=== PATIENT | female | born 1970 | race Hispanic/Latino ===

== ENCOUNTER 2018-05-21 07:10 | Day surgery (SDC) | payer OTHER ==
[2018-05-21 08:02] VITALS: BP 102/69; PULSE 83; RESP 20; TEMP 97.8; O2SAT 98
[2018-05-21 08:02] LABS: EOS % 1.7 % (0.0-4.0); HEMOGLOBIN 10.7 g/dL (11.0-16.0); LYMPH # 1.3 K/uL (1.0-4.3); LYMPH % 45.9 % (20.0-40.0); MEAN CORPUSCULAR HGB CONC 31.9 g/dL (33.0-37.0); MEAN PLATELET VOLUME 11.4 fL (7.2-11.7); MONO # 0.3 K/uL (0.0-0.8); MONO % 10.8 % (0.0-10.0); NEUT # 1.2 K/uL (1.8-7.0); NEUT % 40.6 % (50.0-75.0); NRBC % 0.2 % (0.0-2.0); RBC 5.1 Mil/uL (3.80-5.20); RED CELL DISTRIBUTION WIDTH 14.6 % (11.5-14.5); WHITE BLOOD COUNT 2.8 K/uL (4.8-10.8)
== END 2018-05-21 09:15 | disposition home or self-care (01) ==
LOC: C.SDS 07:10
PROVIDERS: ATTEND Podiatrist Foot & Ankle Surgery
DX: M20.12 Hallux valgus (acquired), left foot (principal); Z53.9 Procedure and treatment not carried out, unspecified reason

== ENCOUNTER 2018-08-29 08:18 | Day surgery (SDC) | payer MEDICAID | END 2018-08-29 15:30 | disposition home or self-care (01) | LOC: C.SDS 08:18 | DX: M20.12 Hallux valgus (acquired), left foot (principal) ==

== ENCOUNTER 2018-11-14 07:06 | Day surgery (SDC) | payer MEDICAID ==
[2018-11-14 07:23] VITALS: BMI 29.2
[2018-11-14] MEDS ORDERED: Lidocaine 2% MPF (5 ml) Inj ONE (10:09)
[2018-11-14] MEDS ORDERED: Bupivacaine HCl 0.5% PF (10 ml) Inj ONE (10:09)
[2018-11-14] MEDS ORDERED: ceFAZolin 1 gm in NS 1 GM/100 ML BAG IVPB ONE (10:10)
[2018-11-14] MEDS ORDERED: Propofol 10 mg/ml Inj (20 ML) ONE (10:16)
[2018-11-14] MEDS ORDERED: Midazolam 2 MG/2 ML VIAL ONE (10:16)
[2018-11-14] MEDS ORDERED: Dexamethasone 4 mg/1 ml ONE (10:59)
[2018-11-14] MEDS ORDERED: Bacitracin 500 Units/gm Oint Foilpak UD ONE (11:00)
[2018-11-14] MEDS ORDERED: Bupivacaine HCl 0.25% PF (10 ml) Inj ONE (11:01)
--- NOTE | 2018-11-14 11:11 | PCM.SURG1 ---
Surgeon's Initial Post Op Note - Surgeon's Notes Surgeon: Dr. Manan Ahumada, DPM Rn Staff: Dr. Tracey Barfield PGY2, Dr. Galindo Bazan PGY2 Type of Anesthesia: IV Sedation, Local Anesthesia Administered By: Dr. Bolivar Pre-Operative Diagnosis: Hallux abductovalgus deformity of right foot Operative Findings: See operative report. M- 3-0/4-0 vicryl, 4-0 nylon. I- Preop: 20 cc 1:1 1% lidocaine plain, 0.25% Sensorcaine plain. Postop: 10 cc 0.25% sensorcaine plain, 4mg dexamethasone Post-Operative Diagnosis: Same Operation Performed: Resection of right first metatarsal head medial eminence Specimen/Specimens Removed: Bone right foot Estimated Blood Loss: EBL {In ML}: 3 Blood Products Given: N/A Drains Used: No Drains Post-Op Condition: Good Date of Surgery/Procedure: 11/14/18 Time of Surgery/Procedure: 11:11
[2018-11-14] MEDS ORDERED: Oxycodone/Acetaminophen 5/325 mg Tab PO PRN ×2 (11:36→11:41)
[2018-11-14] MEDS ORDERED: HYDROmorphone 0.5 mg/0.5 ml ISec IVP PRN (11:37)
[2018-11-14] MEDS ORDERED: Lactated Ringer's 1,000 ML IV SCH (11:45)
[2018-11-14 12:44] VITALS: RESP 18
--- NOTE | 2018-11-14 12:52 | PCM.OP ---
Operative Report - Operative Report Date of Surgery/Procedure: 11/14/18 Time of Surgery/Procedure: 11:00 Surgeon: Dr. Ahumada Roller Inspector And Mender: Tracey Barfield PGY-2, Galindo Bazan PGY-2 Anesthesia/Sedation: IV sedation with local - Dr. Osmel LOGAN Pre-Operative Diagnosis: right foot hallux abductovalgus deformity Post-Operative Diagnosis: same Indication for Surgery: The patient is a 48 year-old female with the above diagnoses. The patient has exhausted conservative treatment at this time and now requests surgical intervention. The patient signed the consent after careful explanation of risks, benefits, complications and alternatives for surgical procedure. No guarantees were given nor implied. NPO status was confirmed prior to taking the patient to the operating room. Operative Findings: The patient was brought to the operating room and placed on the operating room table in the supine position. A well-padded pneumatic ankle tourniquet was placed to the patient's right ankle in the supramalleolar position. After induction of IV sedation, the patient received a total of 15 mL of a 1:1 mixture of 0.25% Marcaine plain and 1% Lidocaine plain in a local digital block fashion to the right foot 4th and 5th digits. Once local anesthesia was achieved, the right foot was then prepped and draped in usual sterile manner. An esmarch was utilized to exsanguinate the patient's right foot. The pneumatic ankle tourniquet was then inflated to 250 mm Hg and procedure began. Procedure/Operation Description: Attention was then directed to the dorsal aspect of the first metatarsal head, right foot where an approximately 5 cm linear longitudinal incision was made medial and parallel to the tendon of the extensor hallucis longus and involved the contour of the deformity. The incision was deepened through the subcutaneous tissues using sharp and blunt dissection. Care was taken to identify and retract all vital neurovascular structures. All bleeders were cauterized and ligated as necessary. At this time, an inverted L type capsulotomy was performed over the dorsal aspect ofthe first metatarsophalangeal joint. The periosteal and capsular structures were then carefully dissected free of their osseous attachments and reflected medially and laterally thus exposing the head of the first metatarsal into the operative site. Next utilizing an oscillating bone saw, the dorsal and medial prominences were resected and passed from the operative field, All rough edges were then smoothed down with a bone rasp. Correction of the deformity was assessed at this time and was noted to be excellent. The wound was then flushed with copious amount of sterile normal saline solution. The periosteal and capsular structures were then reapproximated and coapted utilizing #2-0 and #3-0 Vicryl. Redundant capsular tissues were resected as necessary. The subcuticular tissues were then reapproximated and coapted utilizing #4-0 Vicryl. The skin was then reapproximated and coapted utilizing #4-0 Nylon. A postoperative injection of 10cc of 0.5% Marcaine plain, 1cc of Dexamethasone phosphate and 1cc of Kenalog was injected for analgesia and edema control. Postoperative bandages included bacitracin, Adaptic, 4x4 gauze, Jessica and an JAY bandage. Estimated Blood Loss: 3mL Complications: None Specimen: right foot 1st metatarsal bone Discharge & Condition: The patient tolerated the anesthesia and procedure well and was escorted to the recovery room with vital signs stable and neurovascular status intact to the right foot. This patient will follow up with Dr. Ahumada in his office within 1 week of surgery.
[2018-11-14 13:03] VITALS: BP 105/69; PULSE 74; TEMP 98; O2SAT 98
--- NOTE | 2018-11-18 16:05 | RAD ---
Date of service: 11/14/2018 PROCEDURE: Right Foot Radiographs. HISTORY: s/p right foot bunionectomy COMPARISON: None. TECHNIQUE: 3 views obtained. FINDINGS: BONES: Patient is status post bunionectomy of the 1st metatarsal. There is associated soft tissue swelling. There is an Achilles calcaneal enthesophyte. Moderate-sized plantar calcaneal spur noted. JOINTS: No dislocation seen. SOFT TISSUES: See above OTHER FINDINGS: None. IMPRESSION: Postsurgical changes as above.
== END 2018-11-14 14:15 | disposition home or self-care (01) ==
LOC: C.SDS 07:06
PROVIDERS: ATTEND Podiatrist Foot & Ankle Surgery
DX: M20.11 Hallux valgus (acquired), right foot (principal)
CPT/HCPCS: 28270; 73630; 88304; 97116; 97161; G8978; G8979; G8980; J0690; J1100; J2250; J2704; J3010